=== PATIENT | female | born 1955 | race Caucasian/White ===

== ENCOUNTER 2018-11-23 18:53 | Emergency (ER) | payer BC ==
[~2018-11-23] VITALS: Ht 152.4 cm; Wt 81.7 kg
[2018-11-23 19:20] VITALS: Ht 152.4 cm; Wt 81.7 kg
--- NOTE | 2018-11-24 00:08 | ERD ---
ER Documentation Chief Complaint Chief Complaint LLQ PAIN; HX OF DIVERTICULITIS HPI 64-year-old female with a history of diverticulitis presenting with left lower quadrant pain for the past 3 days that she describes as throbbing, nonradiating, with no other associated symptoms. She does have a history of diverticulitis and saw her primary care doctor 3 days ago and was started on treatment for diverticulitis with Cipro and Flagyl. She has been taking these medications for the past 3 days without improvement of her symptoms. Which is why she came to the ER today for evaluation. She does endorse some constipation, more than usual. But no nausea, vomiting, fever or chills. ROS All systems reviewed and are negative except as per history of present illness. Allergies Allergies: Coded Allergies: No Known Allergy (Unverified , 01/04/14) PMhx/Soc History of Surgery: Yes ( X 3, HYSTERECTOMY) Anesthesia Reaction: No Hx Neurological Disorder: No Hx Respiratory Disorders: No Hx Cardiac Disorders: No Hx Psychiatric Problems: No Hx Miscellaneous Medical Probl: Yes (DIVERTICULITIS) Hx Alcohol Use: No Hx Substance Use: No Hx Tobacco Use: No Smoking Status: Never smoker FmHx Family History: No diabetes Physical Exam Vitals Vital Signs Date Temp Pulse Resp B/P (MAP) Pulse Ox O2 O2 Flow FiO2 Time Delivery Rate 11/23/18 62 16 141/95 100 Room Air 21:26 (110) 11/23/18 98.2 68 16 158/87 98 19:20 (110) Physical Exam Const: No acute distress Head: Atraumatic Eyes: Normal Conjunctiva ENT: Normal External Ears, Nose and Mouth. Neck: Full range of motion. No meningismus. Resp: Clear to auscultation bilaterally Cardio: Regular rate and rhythm, no murmurs Abd: Soft, left lower quadrant tenderness to deep palpation with no rebound but has voluntary guarding. No masses. Non distended. Normal bowel sounds Skin: No petechiae or rashes Back: No midline or flank tenderness Ext: No cyanosis, or edema Neur: Awake and alert Psych: Normal Mood and Affect Result Diagram: 11/23/18219911/23/182199 Results 24 hrs Laboratory Tests Test 11/23/18 22:00 White Blood Count 5.0 10^3/ul Red Blood Count 4.51 10^6/ul Hemoglobin 13.4 g/dl Hematocrit 40.2 % Mean Corpuscular Volume 89.1 fl Mean Corpuscular Hemoglobin 29.7 pg Mean Corpuscular Hemoglobin Concent 33.3 g/dl Red Cell Distribution Width 12.4 % Platelet Count 287 10^3/UL Mean Platelet Volume 10.0 fl Immature Granulocytes % 0.400 % Neutrophils % 56.0 % Lymphocytes % 30.6 % Monocytes % 8.8 % Eosinophils % 3.4 % Basophils % 0.8 % Nucleated Red Blood Cells % 0.0 /100WBC Immature Granulocytes # 0.020 10^3/ul Neutrophils # 2.8 10^3/ul Lymphocytes # 1.5 10^3/ul Monocytes # 0.4 10^3/ul Eosinophils # 0.2 10^3/ul Basophils # 0.0 10^3/ul Nucleated Red Blood Cells # 0.0 10^3/ul Sodium Level 142 mmol/L Potassium Level 3.8 mmol/L Chloride Level 107 mmol/L Carbon Dioxide Level 27 mmol/L Anion Gap 8 Blood Urea Nitrogen 19 mg/dl Creatinine 0.71 mg/dl Est Glomerular Filtrat Rate mL/min > 60 mL/min Glucose Level 107 mg/dl Calcium Level 10.2 mg/dl Procedures/MDM EMERGENT LABS AND DIAGNOSTIC STUDIES: Lab Results above were reviewed and interpreted by me. CBC: no anemia or evidence of infection BMP: No evidence of electrolyte abnormality, renal failure, hypoglycemia Radiology Results as interpreted by Radiology below were reviewed by Lorri Wheatley MD: CT abdomen and pelvis shows no acute abnormalities Initial Nursing notes reviewed. Previous Medical Records requested via the Electronic Health Record. EMERGENCY DEPARTMENT COURSE / MEDICAL DECISION MAKING: Patient presents with worsening left lower quadrant pain despite treatment for diverticulitis. Vitals are stable and she is afebrile. Given her left lower quadrant tenderness, I did a CT to evaluate for possible diverticulitis complication such as abscess. CT did not show any significant abnormalities. Labs were normal. I explained this to the patient. It is possible she is suffering from constipation. Recommended [id number] medications for constipation. Patient feels comfortable with this plan. Return precautions discussed. Patient's blood pressure was elevated (>120/80) but appears stable without evidence of hypertensive emergency or urgency. The patient was counseled about the risks of hypertension and urged to pursue outpatient monitoring and therapy within a week with their primary care physician. Departure Diagnosis: Primary Impression: Abdominal pain Abdominal location: left lower quadrant Qualified Codes: R10.32 - Left lower quadrant pain Additional Impression: Constipation Constipation type: unspecified constipation type Qualified Codes: K59.00 - Constipation, unspecified Condition: Stable Patient Instructions: Abdominal Pain, Constipation (Adult) OLY WHEATLEY MD Nov 24, 2018 00:08
[2018-11-24 00:45] VITALS: BP 139/87; PULSE 57; RESP 16
== END 2018-11-24 00:45 | disposition home or self-care (01) ==
LOC: E/R 18:53
DX: K59.00 Constipation, unspecified (principal)
CPT/HCPCS: 36415; 74176; 80048; 85025